=== PATIENT | female | born 1990 | race Two or more races ===

== ENCOUNTER 2016-10-01 18:21 | Emergency (ER) | payer MEDICAID ==
[~2016-10-01] VITALS: Ht 160 cm; Wt 90.7 kg
[2016-10-01 18:25] VITALS: BP 133/80
[2016-10-01] MEDS ORDERED: IBUPROFEN 600 MG TABLET. PO ONE (18:45)
--- NOTE | 2016-10-01 19:35 | PHYS DOC ---
Past Medical History Past Medical History: No Pertinent History Past Surgical History: Cholecystectomy Alcohol Use: Occasionally Drug Use: Marijuana Adult General Chief Complaint Chief Complaint: ANKLE PROBLEM HPI HPI Patient is a 26 year old female presents with left foot pain after tripping at 0200 today. Took Ibuprofen this morning which helped and denies any other injuries Review of Systems Review of Systems Constitutional: Denies fever or chills [] Eyes: Denies change in visual acuity, redness, or eye pain [] HENT: Denies nasal congestion or sore throat [] Respiratory: Denies cough or shortness of breath [] Cardiovascular: No additional information not addressed in HPI [] GI: Denies abdominal pain, nausea, vomiting, bloody stools or diarrhea [] : Denies dysuria or hematuria [] Musculoskeletal: Left foot pain Integument: Denies rash or skin lesions [] Neurologic: Denies headache, focal weakness or sensory changes [] Endocrine: Denies polyuria or polydipsia [] Current Medications Current Medications Current Medications Medications (Trade) Dose Ordered Sig/Alejandro Start Time Stop Time Status Last Admin Dose Admin Ibuprofen (Motrin) 600 mg 1X ONCE 10/01/16 18:45 10/01/16 18:47 DC 10/01/16 18:59 600 MG Allergies Allergies Allergies Coded Allergies Type Severity Reaction Last Updated Verified No Known Drug Allergies 10/01/16 No Physical Exam Physical Exam Constitutional: Well developed, well nourished, no acute distress, non-toxic appearance. [] HENT: Normocephalic, atraumatic, bilateral external ears normal, oropharynx moist, no oral exudates, nose normal. [] Eyes: PERRLA, EOMI, conjunctiva normal, no discharge. [] Neck: Normal range of motion, no tenderness, supple, no stridor. [] Cardiovascular:Heart rate regular rhythm, no murmur [] Lungs & Thorax: Bilateral breath sounds clear to auscultation [] Abdomen: Bowel sounds normal, soft, no tenderness, no masses, no pulsatile masses. [] Skin: Warm, dry, no erythema, no rash. [] Back: No tenderness, no CVA tenderness. [] Extremities: Tenderness dorsal left foot at proximal metatarsals 3,4,5 Neurologic: Alert and oriented X 3, normal motor function, normal sensory function, no focal deficits noted. [] Psychologic: Affect normal, judgement normal, mood normal. [] Current Patient Data Vital Signs Vital Signs Date Time Temp Pulse Resp B/P Pulse Ox O2 Delivery O2 Flow Rate FiO2 10/01/16 18:25 97.5 95 18 98 Room Air 97.5 EKG EKG [] Radiology/Procedures Radiology/Procedures [] Impressions: Left foot injury Course & Med Decision Making Course & Med Decision Making Pertinent Labs and Imaging studies reviewed. (See chart for details) [] Dragon Disclaimer Dragon Disclaimer This electronic medical record was generated, in whole or in part, using a voice recognition dictation system. Departure Departure Impression: Primary Impression: Injury of foot, left Disposition: HOME, SELF-CARE Condition: STABLE Referrals: NO PCP (PCP) Patient Instructions: Foot Sprain-Brief Additional Instructions: Wear the rhoda wrap for comfort. Continue the Iburprofen for pain. Follow up with primary in 2-3 days. Return if problems or concerns ELIDA HOOKS APRN Oct 01, 2016 19:35
--- NOTE | 2016-10-02 07:39 | RAD ---
Exam performed: Left foot 3 views. Clinical Indication: Patient twisted foot today and fell, complaining of pain. Date of Service:10/01/16. Comparison :None available Findings: PA, oblique and lateral radiographs of the foot reveal the osseous structures to be intact and well aligned. The joint spaces are well preserved and the articular margins are smooth. Impression: Radiographically normal osseous structures of the left foot.
== END 2016-10-01 19:57 | disposition home or self-care (01) ==
LOC: ER 18:21
DX: S99.922A Unspecified injury of left foot, initial encounter (principal); F12.10 Cannabis abuse, uncomplicated; W01.0XXA Fall on same level from slipping, tripping and stumbling without subsequent striking against object, initial encounter; Y93.89 Activity, other specified; Y99.8 Other external cause status; Y92.89 Other specified places as the place of occurrence of the external cause
CPT/HCPCS: 73630; 99284

== ENCOUNTER 2016-10-09 18:47 | Emergency (ER) | payer SELFPAY ==
[~2016-10-09] VITALS: Ht 160 cm; Wt 90.7 kg
[2016-10-09] MEDS ORDERED: DIPHTH,PERTUSS(ACELL),TET TOX 0.5 ML DISP.SYRIN. VAX IM ONE (19:30)
[2016-10-09 19:32] VITALS: BP 156/71
[2016-10-09] MEDS ORDERED: SULF1TAB24 PO (19:33)
--- NOTE | 2016-10-09 19:34 | PHYS DOC ---
Past Medical History Past Medical History: No Pertinent History Past Surgical History: Cholecystectomy Alcohol Use: Occasionally Drug Use: Marijuana Adult General Chief Complaint Chief Complaint: INSECT BITE HPI HPI Patient is a 26 year old female presents emergency department stating that she was bit by something on her right upper inner thigh. She states that she noticed it this morning. She states that she did try to squeeze the area with no relief. No drainage noted from the site. She is unsure when her last tetanus immunization occurred. Patient states that she's had increased pain and discomfort with that the size is approximately a nickel size. There is no drainage noted. Slight tenderness noted. Last Normal menstrual period 2 weeks ago Review of Systems Review of Systems Constitutional: Denies fever or chills [] Eyes: Denies change in visual acuity, redness, or eye pain [] HENT: Denies nasal congestion or sore throat [] Respiratory: Denies cough or shortness of breath [] Cardiovascular: No additional information not addressed in HPI [] GI: Denies abdominal pain, nausea, vomiting, bloody stools or diarrhea [] : Denies dysuria or hematuria [] Musculoskeletal: Denies back pain or joint pain [] Integument: Denies rash or skin lesions. Complaint of a bite to the right inner thigh. Neurologic: Denies headache, focal weakness or sensory changes [] Current Medications Current Medications Current Medications Medications (Trade) Dose Ordered Sig/Alejandro Start Time Stop Time Status Last Admin Dose Admin Diphtheria/ Tetanus/Acell Pertussis (Boostrix) 0.5 ml ONCE ONCE 10/09/16 19:30 10/09/16 19:31 Allergies Allergies Allergies Coded Allergies Type Severity Reaction Last Updated Verified No Known Drug Allergies 10/01/16 No Physical Exam Physical Exam Constitutional: Well developed, well nourished, no acute distress, non-toxic appearance. [] HENT: Normocephalic, atraumatic, bilateral external ears normal, oropharynx moist, no oral exudates, nose normal. [] Eyes: PERRLA, EOMI, conjunctiva normal, no discharge. [] Neck: Normal range of motion, no tenderness, supple, no stridor. [] Cardiovascular:Heart rate regular rhythm, no murmur [] Lungs & Thorax: Bilateral breath sounds clear to auscultation [] Skin: Warm, dry, no erythema, no rash. Right upper inner thigh with an area that appears to be red the size of a nickel with the Center having a yellow area. Area appears to be very soft with no drainage or discharge noted no fluctuation noted. Back: No tenderness Extremities: No tenderness, no cyanosis, no clubbing, ROM intact, no edema. [] Neurologic: Alert and oriented X 3, normal motor function, normal sensory function, no focal deficits noted. [] Psychologic: Affect normal, judgement normal, mood normal. [] EKG EKG [] Radiology/Procedures Radiology/Procedures [] Course & Med Decision Making Course & Med Decision Making Pertinent Labs and Imaging studies reviewed. (See chart for details) Patient was provided with a tetanus update here in the emergency department. She 'll be placed on Bactrim 1 tablet twice day for the next 10 days. Recommended warm moist packs to the area 4 times a day for 20 minutes at a time. Patient will be discharged home in stable condition recommended following up with her primary care in 3-5 days. Since symptoms to return back to emergency department as been provided. [] Dragon Disclaimer Dragon Disclaimer This electronic medical record was generated, in whole or in part, using a voice recognition dictation system. Departure Departure Impression: Primary Impression: Cellulitis Disposition: 01 HOME, SELF-CARE Condition: STABLE Referrals: NO PCP (PCP) Patient Instructions: Cellulitis, [id number] Additional Instructions: Activity as tolerated. Warm moist packs to the area 4 times a day for 20 minutes at a time. Antibiotics as ordered, Bactrim. Follow-up to primary care physician next 3-5 days. Return back to emergency prior signs symptoms of become worse. Scripts Sulfamethoxazole/Trimethoprim (Bactrim Ds Tablet)1 Each Tablet1 Tab PO BID #20 TAB Prov:ASIA PARDO NP 10/09/16 ASIA PARDO NP Oct 09, 2016 19:34
== END 2016-10-09 19:44 | disposition home or self-care (01) ==
LOC: ER 18:52
DX: L03.115 Cellulitis of right lower limb (principal); F12.10 Cannabis abuse, uncomplicated
CPT/HCPCS: 90471; 90715; 99283-25